=== PATIENT | female | born 1960 | race Asian ===

== ENCOUNTER 2020-01-07 10:14 | Emergency (ER) | payer SELFPAY ==
[~2020-01-07] VITALS: Ht 157.5 cm; Wt 49.4 kg
--- NOTE | 2020-01-07 10:23 | NUR ---
"Spotting on/off since 2018 worse this month last night more when I pee", to ER bed 16, hooked to monitor, changed to hosp gown, warm blanket provided, Dr Malave at bedside
--- NOTE | 2020-01-07 10:25 | NUR ---
URINE SPECIMEN COLLECTED AND SENT TO LAB.
--- NOTE | 2020-01-07 10:40 | NUR ---
IV LINE ESTABLISHED BLOOD DRAWN AND SENT TO LAB.
[2020-01-07 10:47] LABS: APPEARANCE,URINE Clear (CLEAR); BILIRUBIN,URINE Negative (NEGATIVE); BLOOD, URINE Moderate Ery/uL (NEGATIVE); COLOR,URINE Yellow (YELLOW); KETONES,URINE Negative (NEGATIVE); LEUKOCYTE ESTERASE ,URINE Negative (NEGATIVE); NITRITE, URINE Negative (NEGATIVE); PH,URINE 7.5 (5.0-8.0); PROTEIN,URINE Negative (NEGATIVE); UGLUCOSE Negative (NEGATIVE); UROBILINOGEN,URINE 0.2 EU/dL (0.2)
[2020-01-07 10:49] LABS: BASOPHILS % (AUTO) 0.8 % (0.0-2.0); EOSINOPHILS % (AUTO) 0.4 % (0.0-6.0); HEMATOCRIT 42 % (33-45); HEMOGLOBIN 13.6 g/dL (11.5-14.8); LYMPHOCYTES % (AUTO) 18.3 % (20.0-44.0); MEAN CORPUSCULAR HGB CONC 33 g/dl (31.0-36.0); MEAN CORPUSCULAR VOLUME 84 fL (82-100); MONOCYTES # (AUTO) 0.3 /CMM (0.1-1.30); MONOCYTES % (AUTO) 5.2 % (2.0-12.0); NEUTROPHILS # (AUTO) 4.1 /CMM (1.8-8.9); NEUTROPHILS % (AUTO) 75.3 % (43.0-81.0); PLATELET COUNT (AUTO) 301 /CMM (150-450); RED BLOOD CELL COUNT(AUTO) 4.96 MIL/uL (4.0-5.2); WHITE BLOOD COUNT (AUTO) 5.5 K/uL (4.3-11.0)
[2020-01-07 10:56] LABS: BACTERIA,URINE Few /HPF (None Seen); SQUAMOUS EPITHELIAL CELL,UR Few /HPF (None Seen); WBC,URINE 0-2 /HPF (0-3)
[2020-01-07] MEDS ORDERED: IV NS 0.9% 1,000 ML BAG IV ONE (11:00)
[2020-01-07 11:02] LABS: ALBUMIN 4.3 g/dL (3.4-5.0); BILIRUBIN,DIRECT 0.1 mg/dL (0.0-0.2); BILIRUBIN,TOTAL 0.3 mg/dL (0.2-1.0); CALCIUM, SERUM 9.1 mg/dL (8.5-10.1); CREATININE 0.8 mg/dL (0.6-1.3); TOTAL PROTEIN, SERUM 8.1 g/dL (6.4-8.2)
--- NOTE | 2020-01-07 11:20 | NUR ---
TECH AT BEDSIDE FOR US.
--- NOTE | 2020-01-07 12:05 | NUR ---
IV removed. Catheter intact and site benign. Pressure and 4x4 applied to site. No bleeding noted.Patient discharged to home in stable condition. Written and verbal after care instructions given. Patient verbalizes understanding of instruction.
[2020-01-07 12:07] VITALS: BP 174/100
== END 2020-01-07 12:07 | disposition home or self-care (01) ==
LOC: ER 10:18
DX: D25.9 Leiomyoma of uterus, unspecified (principal)
CPT/HCPCS: 36415; 76856; 80048; 80076; 81001; 85025; 87086; 99284; J7030; 81000-TC

== ENCOUNTER 2020-03-24 12:01 | Inpatient (IN) | payer SELFPAY ==
[~2020-03-24] VITALS: Ht 157.5 cm; Wt 48.5 kg
[2020-03-24] VITALS (9 sets, daily range): BP systolic 108–141; BP diastolic 66–81
--- NOTE | 2020-03-24 12:10 | NUR ---
patient came in to the er c/o vaginal bleeding x 2 months. On room air, breathing evenly and unlabored. connected to the monitor and pulse ox. kept comfortable, will continue to monitor accordingly.
[2020-03-24] MEDS ORDERED: IV NS 0.9% 1,000 ML BAG IV ONE (12:30)
[2020-03-24 12:55] LABS: APPEARANCE,URINE SL CLOUDY (CLEAR); BILIRUBIN,URINE NEGATIVE (NEGATIVE); BLOOD, URINE LARGE Ery/uL (NEGATIVE); COLOR,URINE AMBER (YELLOW); KETONES,URINE NEGATIVE (NEGATIVE); LEUKOCYTE ESTERASE ,URINE TRACE (NEGATIVE); NITRITE, URINE NEGATIVE (NEGATIVE); PH,URINE 6.5 (5.0-8.0); PROTEIN,URINE 30 mg/dl (NEGATIVE); UGLUCOSE NEGATIVE (NEGATIVE); UROBILINOGEN,URINE 0.2 EU/dL (0.2)
[2020-03-24 12:58] LABS: BASOPHILS # (AUTO) 0.1 /CMM (0.0-0.2); BASOPHILS % (AUTO) 1.1 % (0.0-2.0); EOSINOPHILS % (AUTO) 1.4 % (0.0-6.0); LYMPHOCYTES # (AUTO) 1.7 /CMM (0.8-4.8); LYMPHOCYTES % (AUTO) 27.8 % (20.0-44.0); MEAN CORPUSCULAR HGB CONC 31 g/dl (31.0-36.0); MEAN CORPUSCULAR VOLUME 78 fL (82-100); MONOCYTES # (AUTO) 0.4 /CMM (0.1-1.30); MONOCYTES % (AUTO) 7.1 % (2.0-12.0); NEUTROPHILS # (AUTO) 3.8 /CMM (1.8-8.9); NEUTROPHILS % (AUTO) 62.6 % (43.0-81.0); PLATELET COUNT (AUTO) 465 /CMM (150-450); RED BLOOD CELL COUNT(AUTO) 2.23 MIL/uL (4.0-5.2); WHITE BLOOD COUNT (AUTO) 6.1 K/uL (4.3-11.0)
[2020-03-24 13:05] LABS: BACTERIA,URINE Few /HPF (None Seen); RBC,URINE TOO NUMEROUS TO COUN /HPF (0-2); SQUAMOUS EPITHELIAL CELL,UR Few /HPF (None Seen); WBC,URINE 0-2 /HPF (0-3)
[2020-03-24 13:09] LABS: CALCIUM, SERUM 8.6 mg/dL (8.5-10.1); CREATININE 0.7 mg/dL (0.6-1.3); POTASSIUM 3.3 mmol/L (3.5-5.1)
[2020-03-24 13:14] LABS: HEMATOCRIT 18 % (33-45); HEMOGLOBIN 5.4 g/dL (11.5-14.8)
[2020-03-24 13:15] LABS: BAND % (MANUAL) 15 % (0.0-5.0); EOSINOPHILS % (MANUAL) 2 % (0-4); LYMPHOCYTES % (MANUAL) 25 % (16-48); MONOCYTES % (MANUAL) 9 % (0-11.0); NEUTROPHILS % (MANUAL) 49 (42-76)
[2020-03-24 13:24] LABS: ALBUMIN 3.6 g/dL (3.4-5.0); BILIRUBIN,DIRECT 0.1 mg/dL (0.0-0.2); BILIRUBIN,TOTAL 0.2 mg/dL (0.2-1.0); TOTAL PROTEIN, SERUM 7.1 g/dL (6.4-8.2)
--- NOTE | 2020-03-24 14:37 | NUR ---
gallo virus swab done and sent to lab
[2020-03-24] MEDS ORDERED: HYDROCODONE/APAP 10/325MG 1 EA TABLET PO PRN (15:00)
[2020-03-24] MEDS ORDERED: ONDANSETRON HCL/PF 4 MG/2 ML VIAL IVP PRN (15:00)
[2020-03-24] MEDS ORDERED: MAG HYDROX/AL HYDROX/SIMETH 30 ML UDC PO PRN (15:00)
[2020-03-24] MEDS ORDERED: TEMAZEPAM 15 MG CAPSULE PO PRN (15:00)
[2020-03-24] MEDS ORDERED: MAGNESIUM HYDROXIDE 30 ML UDC PO PRN (15:00)
[2020-03-24] MEDS ORDERED: HYDROCODONE/APAP 5/325MG 1 EACH TABLET PO PRN (15:00)
[2020-03-24] MEDS ORDERED: Z GUARD REMEDY 2 OZ OINT TP PRN (15:00)
[2020-03-24] MEDS ORDERED: ACETAMINOPHEN 325 MG TABLET PO PRN (15:00)
--- NOTE | 2020-03-24 15:50 | NUR ---
COVID RESULT NEG. (-) PER LAB
--- NOTE | 2020-03-24 16:26 | NUR ---
Report given to bianka PEREZ for continuity of care
--- NOTE | 2020-03-24 17:04 | NUR ---
RN ADMITTING NOTES Receive pt AAOx3 respirations even and unlabored at RA, IV LAC #18 line is clean and intact.skin assess and is intact. Pt stable able to ambulate continent of B&B no C/O of pain at this time will continue with admits orders. Safety precautions in place bed in low position call light at reach will needs attended continue to monitor.
[2020-03-24] MEDS: MEGESTROL ACETATE 40 MG TABLET PO SCH (18:00)
--- NOTE | 2020-03-24 19:30 | NUR ---
RN PM OPENING NOTE MS REPORT RECIEVED FROM KEYLA PEREZ. PT IN BED IN NO APPARENT DISTRESS. RES EVEN AND UNLABORED. DENIES DIZZINESS UPON AMBULATION. AX0X4. REVIEWED POC QUESTIONS CONCERNS ADDRESSED. PATIENT HGB WAS 5.4 2 UNITS OF PRBC WERE ORDERED FOR TRANSFUSION PER REPORT BLOOD IS READY. IV LEFT AC #18 CDI NO S/S OF INFILTRATION. BED DOWN CALL LIGHT IN REACH WILL CONT TO MONITOR.
[2020-03-25] VITALS (10 sets, daily range): BP systolic 105–182; BP diastolic 57–113
--- NOTE | 2020-03-25 06:40 | NUR ---
RN PM CLOSING NOTES. PT IN BED ALERT ORIENTED DENIES PAIN. DENIES DIZZINESS. AMBULATING TO BR WITH STEADY GAIT. REPORTS WHENT TO BR 5X LAST NOC NO BM. RECIEVED 2 UNITS OF RBC LAST NIGHT TOLEARTED INFUSION WELL. BED DOWN LOCKED SR X2 VERBALIZED UNDERSTANDTING TO CALL FOR ASSISTANCE IF NEEDED.
[2020-03-25 07:28] LABS: BASOPHILS % (AUTO) 0.8 % (0.0-2.0); HEMATOCRIT 26 % (33-45); HEMOGLOBIN 8.2 g/dL (11.5-14.8); LYMPHOCYTES # (AUTO) 1.7 /CMM (0.8-4.8); LYMPHOCYTES % (AUTO) 32.7 % (20.0-44.0); MEAN CORPUSCULAR HGB CONC 32 g/dl (31.0-36.0); MEAN CORPUSCULAR VOLUME 83 fL (82-100); MONOCYTES # (AUTO) 0.3 /CMM (0.1-1.30); MONOCYTES % (AUTO) 6.5 % (2.0-12.0); PLATELET COUNT (AUTO) 371 /CMM (150-450); RED BLOOD CELL COUNT(AUTO) 3.09 MIL/uL (4.0-5.2); WHITE BLOOD COUNT (AUTO) 5.1 K/uL (4.3-11.0)
--- NOTE | 2020-03-25 07:30 | NUR ---
RN Opening Note Received patient in bed, AO x 4, able to responds all stimuli. Denies pain or discomfort, skin is warm to touch, clean/dry. Respiratory even and unlabored in room air, no distress observed. Keep bed in locked with elevated HOB for ensure airway and aspiration precaution. Call light within reach, will continue to monitor.
[2020-03-25 07:31] LABS: CALCIUM, SERUM 8.3 mg/dL (8.5-10.1); CREATININE 0.7 mg/dL (0.6-1.3); MAGNESIUM 2.3 mg/dL (1.8-2.4); PHOSPHORUS 3.3 mg/dL (2.5-4.9); POTASSIUM 3.2 mmol/L (3.5-5.1)
[2020-03-25 07:35] LABS: THYROID STIMULATING HORMONE 2.795 uIU/mL (0.358-3.74)
[2020-03-25] MEDS: MEGESTROL ACETATE 40 MG TABLET PO SCH (08:28)
[2020-03-25] MEDS ORDERED: POTASSIUM CHLORIDE 20 MEQ TAB.PRT.SR PO ONE (08:30)
[2020-03-25 15:26] LABS: BASOPHILS % (AUTO) 0.6 % (0.0-2.0); EOSINOPHILS % (AUTO) 1.5 % (0.0-6.0); HEMATOCRIT 27 % (33-45); HEMOGLOBIN 8.6 g/dL (11.5-14.8); LYMPHOCYTES # (AUTO) 1.7 /CMM (0.8-4.8); LYMPHOCYTES % (AUTO) 25.1 % (20.0-44.0); MEAN CORPUSCULAR HGB CONC 32 g/dl (31.0-36.0); MEAN CORPUSCULAR VOLUME 84 fL (82-100); MONOCYTES # (AUTO) 0.4 /CMM (0.1-1.30); NEUTROPHILS # (AUTO) 4.5 /CMM (1.8-8.9); NEUTROPHILS % (AUTO) 66.8 % (43.0-81.0); PLATELET COUNT (AUTO) 377 /CMM (150-450); RED BLOOD CELL COUNT(AUTO) 3.22 MIL/uL (4.0-5.2); WHITE BLOOD COUNT (AUTO) 6.7 K/uL (4.3-11.0)
--- NOTE | 2020-03-25 16:18 | NUR ---
pt wants to know when COLD WORKING SUPERVISOR is coming. left msg for to find out the time. awaiting for call back.
--- NOTE | 2020-03-25 16:28 | NUR ---
Dr. Parker called back, stating that she will see pt in am.
--- NOTE | 2020-03-25 18:55 | NUR ---
RN Closing Patient in bed comfortably, finished dinner, denies pain or distress. Reparatory even and unlabored in room air, skin is warm to touch, kept clean, dry. Keep bed in locked with elevated HOB for ensure airway and aspiration precaution. Call light within reach, will endorse scene shifter.
--- NOTE | 2020-03-25 19:00 | NUR ---
RN medsurg opening notes Received Pt from morning nurse. Pt is awake and sitting in bed comfortably. Pt is alert and orientedX4. Respiration is normal. No SOB. No S/s of distress noted. IV sites at LAC# 18 is clean, intact and flush without resistance. Pt is able to ambulate with a steady gait. Safety precautions is maintained. Bed at low position, brakes locked, side rails upX2, HOB elevated and call light is within reach. Will continue to monitor.
--- NOTE | 2020-03-25 22:00 | NUR ---
[facility] medsurg closing notes Transferred continuity of care to [facility] Pain[facility].
--- NOTE | 2020-03-25 22:00 | NUR ---
MS RN NOTES RECEIVED REPORT FROM ANA CORDOVA FOR ZEINA. PATIENT IS SLEEPING IN BED. ON RA, NO SOB/ ACUTE RESPIRATORY DISTRESS NOTED. NO COMPLAINTS OF PAIN AT THE MOMENT. BED IS IN LOWEST LOCKED POSITION WITH SIDE RAILS UP X3, SEMI FOWLERS. CALL LIGHT IS WITHIN REACH. WILL CONTINUE TO MONITOR.
--- NOTE | 2020-03-26 06:24 | NUR ---
MS RN CLOSE NOTES PATIENT IS LAYING IN BED. A/O X4. ON RA, NO SOB/ ACUTE RESPIRATORY DISTRESS NOTED. IV IN L AC #18G IS PATENT AND INTACT. APPEARS COMFORTABLE/ NO COMPLAINTS OF PAIN AT THE MOMENT. PATIENT IS AMBULATORY. BED IS IN LOWEST LOCKED POSITION WITH SIDE RAILS UP X2, SEMI FOWLERS. CALL LIGHT IS WITHIN REACH. WILL ENDORSE TO AM NURSE.
--- NOTE | 2020-03-26 07:31 | NUR ---
MS/RN OPENING NOTES RECEIVED PATIENT ON BED AWAKE ALERT AND ORIENTED X4. PATENT DENIES PAIN AT THIS TIME. NO SOB NOTED. WILL CONTINUE TO MONITOR.
[2020-03-26 08:00] VITALS: BP 126/77
[2020-03-26] MEDS: MEGESTROL ACETATE 40 MG TABLET PO SCH (08:27)
[2020-03-26] MEDS ORDERED: MEGE40TA5 PO (12:57)
[2020-03-26] MEDS ORDERED: MULT-754 PO (12:57)
--- NOTE | 2020-03-26 14:45 | NUR ---
MS/RN NOTES PATIENT IS ALERT AND ORIENTED X 4. PATIENT DENIES PAIN AT THIS TIME. IN ROOM AIR AND SATURATION IS AT 100%. RESPIRATION REGULAR AND UNLABORED. THE PATIENT IN NO APPARENT RESPIRATORY DISTRESS NOTED. SEEN AND EXAMINED BY MD WITH ORDERS MADE AND CARRIED OUT. ALL DUE MEDICATION WAS ORDER. PATIENT DISCHARGED AT 1440. PATIENT WAS GIVEN DISCHARGED INSTRUCTIONS AND PATIENT VERBALIZED UNDERSTANDING. THE PATIENT LEFT THE HOSPITAL IN STABLE CONDITION, AMBULATORY AND DATABASE REPORTING CONSULTANT BY FRIEND ON A PRIVATE CAR.
== END 2020-03-26 14:40 | disposition home or self-care (01) | DRG 761 ==
LOC: ER 12:06 → MED 16:25
PROVIDERS: ADMIT Nurse Practitioner Acute Care; ATTEND Nurse Practitioner Acute Care
DX: D25.9 Leiomyoma of uterus, unspecified (principal); N80.0 Endometriosis of uterus; D64.9 Anemia, unspecified; E87.6 Hypokalemia; D47.3 Essential (hemorrhagic) thrombocythemia; N95.0 Postmenopausal bleeding; Z87.891 Personal history of nicotine dependence
CPT/HCPCS: 36415; 76856-TC; 80048-TC; 80076-TC; 81000-TC; 83735-TC; 84100-TC; 84443-TC; 85025-TC; 85730-TC; 86850-TC; 86921-TC; 87081-TC; G0378; J7030; J7050; P9016-BL

== ENCOUNTER 2021-01-09 13:08 | Inpatient (IN) | payer OTHER ==
[~2021-01-09] VITALS: Ht 157.5 cm; Wt 54.0 kg
[2021-01-09] VITALS (8 sets, daily range): BP systolic 119–140; BP diastolic 58–76
[~2021-01-09 13:08] MED LIST: MEGE40TA5 PO; MULT-754 PO
--- NOTE | 2021-01-09 14:00 | NUR ---
VAGINAL BLEEDING DUE TO FIBROIDS BECAME HEAVY SINCE LAST NIGHT, DR PHILLIPS DECREASED HER HORMONE DOSAGES 9 DAYS AGO. PATIENT A/OX4, BREATHING EVEN AND UNLABORED, NO SOB NOTED, NEEDS ATTENDED.
[2021-01-09 14:52] LABS: BASOPHILS # (AUTO) 0.1 /CMM (0.0-0.2); BASOPHILS % (AUTO) 1.3 % (0.0-2.0); EOSINOPHILS % (AUTO) 1.4 % (0.0-6.0); LYMPHOCYTES # (AUTO) 1.4 /CMM (0.8-4.8); LYMPHOCYTES % (AUTO) 16.1 % (20.0-44.0); MEAN CORPUSCULAR HGB CONC 28 g/dl (31.0-36.0); MEAN CORPUSCULAR VOLUME 60 fL (82-100); MONOCYTES # (AUTO) 0.7 /CMM (0.1-1.30); MONOCYTES % (AUTO) 7.3 % (2.0-12.0); NEUTROPHILS # (AUTO) 6.7 /CMM (1.8-8.9); NEUTROPHILS % (AUTO) 73.9 % (43.0-81.0); PLATELET COUNT (AUTO) 433 /CMM (150-450); RED BLOOD CELL COUNT(AUTO) 2.24 MIL/uL (4.0-5.2)
[2021-01-09 14:57] LABS: HEMATOCRIT 13 % (33-45); HEMOGLOBIN 3.7 g/dL (11.5-14.8)
[2021-01-09] MEDS ORDERED: IV NS 0.9% 1,000 ML BAG IV ONE (15:00)
[2021-01-09 15:01] LABS: CALCIUM, SERUM 8.9 mg/dL (8.5-10.1); CREATININE 0.7 mg/dL (0.6-1.3); POTASSIUM 3.3 mmol/L (3.5-5.1)
[2021-01-09] MEDS ORDERED: DROS4TAB PO (15:23)
[2021-01-09 15:30] LABS: BAND % (MANUAL) 2 % (0.0-5.0); EOSINOPHILS % (MANUAL) 2 % (0-4); LYMPHOCYTES % (MANUAL) 9 % (16-48); MONOCYTES % (MANUAL) 5 % (0-11.0); NEUTROPHILS % (MANUAL) 82 (42-76)
--- NOTE | 2021-01-09 15:46 | NUR ---
BED 103
--- NOTE | 2021-01-09 15:51 | NUR ---
PATIENT A/OX4, BREATHING EVEN AND UNLABORED, NO SOB NOTED. VITALS STABLE. NEEDS ATTENDED. KEPT COMFORTABLE.
--- NOTE | 2021-01-09 16:29 | NUR ---
1 UNIT OF PRBC INITIATED. WILL MONITOR FOR ADVERSE REACTION.
--- NOTE | 2021-01-09 17:02 | NUR ---
report given to Tresa vasquez.
[2021-01-09] MEDS ORDERED: ACETAMINOPHEN 325 MG TABLET PO PRN (17:30)
[2021-01-09] MEDS ORDERED: MAGNESIUM HYDROXIDE 30 ML UDC PO PRN (17:30)
[2021-01-09] MEDS ORDERED: ZOLPIDEM TARTRATE 5 MG TABLET PO PRN (17:30)
[2021-01-09] MEDS ORDERED: ONDANSETRON HCL/PF 4 MG/2 ML VIAL IVP PRN (17:30)
[2021-01-09] MEDS ORDERED: MAG HYDROX/AL HYDROX/SIMETH 30 ML UDC PO PRN (17:30)
[2021-01-09] MEDS ORDERED: HYDROCODONE/APAP 5/325MG TABLET PO PRN (17:30)
--- NOTE | 2021-01-09 17:58 | NUR ---
PATIENT A/OX4, TRANSFERRED TO ROOM 103 VIA ACLS PROTOCOL. IN NO DISTRESS NOTED. PRBC 1 UNIT STILL INFUSING AND PATIENT IS TOLERATING WELL. ENDORSED TO TASHA PEREZ.
--- NOTE | 2021-01-09 18:00 | NUR ---
RN ADMITTING NOTES RECEIVED, PATIENT FROM ER, AMBULATORY, ON ROOM AIR, SPO2 99%, DENIES PAIN, NO SOB OR DISTRESS NOTED, IB LINE ON L AC NOTED, INTACT, PATENT, RUNNING 1 UNIT OF PRBC, TOLERATING WELL, VS WNL, PATIENT ORIENTED TO ROOM,EDUCATION PROVIDED, CALL LIGHT IN REACH, BED LOCKED, LOWEST POSITION, WILL CONT TO MONITOR
--- NOTE | 2021-01-09 18:45 | NUR ---
CALLED BLOOD BANK TO CONFIRMED BOUT 2ND UNIT PRBC, PER KEVIN IT WILL BE READY
--- NOTE | 2021-01-09 19:03 | NUR ---
RN CLOSING NOTES BLOOD TRANSFUSING, TOLERATING WELL, STABLE, WILL ENDORSE TO PM SHIFT RN FOR ZEINA
--- NOTE | 2021-01-09 19:30 | NUR ---
RN NOTE RECEIVED PT ALERT AND ORIENTED X 4. DENIES ANY SOB OR CHEST PAIN. ON TELE MONITOR SHOWS SINUS RHYTHM. 1ST BAG OF PRBC JUST FINISHED. NO S/SX OF REACTIONS NOTED. IV ON LAC PATENT AND INTACT. WILL CONTINUE TO MONITOR. ALL SAFETY MEASURES IMPLEMENTED PER PROTOCOL.
--- NOTE | 2021-01-09 20:05 | NUR ---
RN NOTE 2ND UNIT OF PRBC STARTED TRANSFUSING. VITAL SIGNS IN NORMAL RANGE, AFEBRILE. WILL CONTINUE TO MONITOR.
--- NOTE | 2021-01-09 20:35 | NUR ---
RN NOTE TRANSFUSION ON GOING, PT TEMP 99.4. NO SIGNS OF OTHER REACTIONS NOTED. PT DENIES SOB. PT DOES NOT WANT TO TAKE TYLENOL FOR NOW, WILL RECHECK IN 3O MINS. DIESEL ENGINEER GLEN HOUSER MADE AWARE.
--- NOTE | 2021-01-09 22:07 | NUR ---
RN NOTE BLOOD TRANSFUSION STILL ONGOING, PT TOLERATING WELL. NO SIGNS OF DISTRESS OR REACTIONS NOTED. PT TEMP 98.8.
--- NOTE | 2021-01-09 23:46 | NUR ---
RN NOTE BLOOD TRANSFUSION DONE. NO S/SX OF REACTIONS NOTED. NO DISTRESS NOTED. DENIES SOB. WILL CONTINUE TO MONITOR.
[2021-01-10] VITALS: BP 140/76
[2021-01-10 02:21] LABS: HEMOGLOBIN 7.2 g/dL (11.5-14.8)
[2021-01-10 04:00] VITALS: BP 144/73
[2021-01-10 06:00] LABS: CALCIUM, SERUM 8.4 mg/dL (8.5-10.1); CREATININE 0.7 mg/dL (0.6-1.3); PHOSPHORUS 2.2 mg/dL (2.5-4.9); POTASSIUM 3.3 mmol/L (3.5-5.1)
[2021-01-10 06:11] LABS: BASOPHILS # (AUTO) 0.1 /CMM (0.0-0.2); BASOPHILS % (AUTO) 1.1 % (0.0-2.0); EOSINOPHILS % (AUTO) 1.6 % (0.0-6.0); HEMATOCRIT 23 % (33-45); HEMOGLOBIN 7.4 g/dL (11.5-14.8); LYMPHOCYTES # (AUTO) 1.3 /CMM (0.8-4.8); LYMPHOCYTES % (AUTO) 15.6 % (20.0-44.0); MEAN CORPUSCULAR HGB CONC 32 g/dl (31.0-36.0); MEAN CORPUSCULAR VOLUME 73 fL (82-100); MONOCYTES # (AUTO) 0.5 /CMM (0.1-1.30); MONOCYTES % (AUTO) 6.3 % (2.0-12.0); NEUTROPHILS # (AUTO) 6.1 /CMM (1.8-8.9); NEUTROPHILS % (AUTO) 75.4 % (43.0-81.0); PLATELET COUNT (AUTO) 360 /CMM (150-450)
[2021-01-10 06:53] LABS: THYROID STIMULATING HORMONE 3.043 uIU/mL (0.358-3.74)
--- NOTE | 2021-01-10 07:00 | NUR ---
RN CLOSING NOTES PT AWAKE, ABLE TO MAKE NEEDS KNOWN. LATEST HGB 7.4. PT WITH ACTIVE VAGINAL BLEEDING. DENIES SOB OR DIZZINESS. PT AMBULATES TO RESTROOM. ALL NEEDS ATTENDED. IV REMAIN PATENT AND INTACT. WILL ENDORSE TO NEXT SHIFT NURSE FOR ZEINA.
[2021-01-10] MEDS ORDERED: PANTOPRAZOLE 40 MG TABLET.DR PO SCH (07:30)
--- NOTE | 2021-01-10 07:30 | NUR ---
RN OPENING NOTE PATIENT PRESENT IN BED, A/OX4, ON ROOM AIR, SPO2 100%, NO ACUTE DISTRESS, NO SOB NOTED, DENIES PAIN, DISCOMFORT, STATES THAT SHE WAS ACTIVELY BLEEDING DURING THE NIGHT (USED 5 PADS) , IV LINE PATENT AND INTACT, BED LOCKED, IN LOWEST POSITION, CALL LIGHT IN REACH, WILL CONT TO MONITOR
--- NOTE | 2021-01-10 09:55 | NUR ---
Picked up blood from blood bank
[2021-01-10] MEDS ORDERED: POTASSIUM CHLORIDE 20 MEQ TAB.PRT.SR PO ONE (10:00)
[2021-01-10 10:07] VITALS: BP 114/61
--- NOTE | 2021-01-10 10:07 | NUR ---
blood transfusion imitated
[2021-01-10 10:22] VITALS: BP 112/61
[2021-01-10] MEDS ORDERED: K PHOS NEUTRAL 250 MG TABLET PO ONE (10:30)
--- NOTE | 2021-01-10 10:30 | NUR ---
Tolerating transfusion well, no s/sx of adverse reaction noted, BS WNL, will cont to monitor
[2021-01-10 10:52] VITALS: BP 123/68
--- NOTE | 2021-01-10 13:00 | NUR ---
TOLERATED BLOOD TRANSFUSION WELL, VS WNL, EDUCATION PROVIDED, VERBALIZED UNDERSTANDING TO CALL AND FOLLOW UP WITH OBGYN DOCTOR, (DR PHILLIPS), IV LINE REMOVED, WILL BE PICKED UP BY ROOMMATE CAR
== END 2021-01-10 14:17 | disposition home or self-care (01) | DRG 532 ==
LOC: ER 13:12 → TELE1 16:54
PROC: 30233N1 Transfusion of Nonautologous Red Blood Cells into Peripheral Vein, Percutaneous Approach (ICD-10-PCS; principal; 2021-01-09)
DX: D25.9 Leiomyoma of uterus, unspecified (principal); D62 Acute posthemorrhagic anemia; E87.1 Hypo-osmolality and hyponatremia; Z20.822 Contact with and (suspected) exposure to COVID-19; E87.6 Hypokalemia; Z87.891 Personal history of nicotine dependence; Z79.899 Other long term (current) drug therapy
CPT/HCPCS: 36415; 80048-TC; 80061-TC; 83735-TC; 84100-TC; 84443-TC; 85025-TC; 85027-TC; 85730-TC; 86850-TC; 87081-TC; C9803; G0378; J7030; J7050; P9016

== ENCOUNTER 2021-06-21 10:35 | Inpatient (IN) | payer OTHER ==
[~2021-06-21] VITALS: Ht 157.5 cm; Wt 54.4 kg
--- NOTE | 2021-06-21 10:47 | NUR ---
PT SELF PRESENTS TO ED C/O FEVER SINCE WEDNESDAY. STATES TAKING TYLENOL BUT NOT GOING AWAY. PT ALSO C/O MILD ABDOMINAL/PELVIC PAIN. HYPERTENSIVE W/ LOW GRADE FEVER DEICER REPAIRER. PLACED ON MONITOR. AWAITING MD NORIEGA.
--- NOTE | 2021-06-21 11:00 | NUR ---
MOVE SHEET SUBMITTED.
--- NOTE | 2021-06-21 11:04 | NUR ---
DR ASHTON AT BEDSIDE FOR EVAL.
--- NOTE | 2021-06-21 11:15 | NUR ---
PIT BOSS AT BEDSIDE
[2021-06-21] MEDS ORDERED: PIPERACILLIN /TAZOBACTAM 3.375 G in IV D5W 50 ML IV ONE (11:30)
[2021-06-21 11:31] LABS: BASOPHILS # (AUTO) 0.1 K/uL (0.0-0.2); BASOPHILS % (AUTO) 0.3 % (0.0-2.0); EOSINOPHILS % (AUTO) 0.1 % (0.0-6.0); HEMATOCRIT 25 % (33-45); HEMOGLOBIN 7.6 g/dL (11.5-14.8); LYMPHOCYTES # (AUTO) 0.5 K/uL (0.8-4.8); LYMPHOCYTES % (AUTO) 2.9 % (20.0-44.0); MEAN CORPUSCULAR HGB CONC 31 g/dl (31.0-36.0); MEAN CORPUSCULAR VOLUME 76 fL (82-100); MONOCYTES # (AUTO) 0.6 K/uL (0.1-1.30); MONOCYTES % (AUTO) 3.4 % (2.0-12.0); NEUTROPHILS # (AUTO) 17.3 K/uL (1.8-8.9); NEUTROPHILS % (AUTO) 93.3 % (43.0-81.0); PLATELET COUNT (AUTO) 575 K/uL (150-450); RED BLOOD CELL COUNT(AUTO) 3.29 MIL/uL (4.0-5.2); WHITE BLOOD COUNT (AUTO) 18.5 K/uL (4.3-11.0)
[2021-06-21 11:36] LABS: BILIRUBIN,URINE Negative (NEGATIVE); COLOR,URINE YELLOW (YELLOW); LEUKOCYTE ESTERASE ,URINE Moderate (NEGATIVE); NITRITE, URINE Negative (NEGATIVE); PROTEIN,URINE 30 mg/dl (NEGATIVE); UGLUCOSE Negative (NEGATIVE)
[2021-06-21 11:38] LABS: BACTERIA,URINE 2+ /HPF (None Seen); SQUAMOUS EPITHELIAL CELL,UR Few /HPF (None Seen)
[2021-06-21 11:38] LABS: CREATININE 1.3 mg/dL (0.6-1.3); POTASSIUM 3.2 mmol/L (3.5-5.1)
[2021-06-21 11:44] LABS: ALBUMIN 3.2 g/dL (3.4-5.0); BILIRUBIN,DIRECT 0.2 mg/dL (0.0-0.2); BILIRUBIN,TOTAL 0.6 mg/dL (0.2-1.0); TOTAL PROTEIN, SERUM 7.9 g/dL (6.4-8.2)
[2021-06-21] MEDS ORDERED: IV NS 0.9% 2,000 ML IV ONE (12:00)
[2021-06-21] MEDS ORDERED: VANCOMYCIN HCL 1.25 GM in IV D5W 260 ML IV ONE (12:00)
[2021-06-21] MEDS ORDERED: ACETAMINOPHEN 325 MG TABLET PO ONE (12:00)
[2021-06-21] MEDS ORDERED: IOHEXOL-300 100 ML VIAL IV ONE (12:07)
[2021-06-21] MEDS ORDERED: ACETAMINOPHEN 325 MG TABLET ONE (12:11)
--- NOTE | 2021-06-21 12:12 | NUR ---
COVID SWAB DONE AND SENT TO LAB
--- NOTE | 2021-06-21 13:17 | NUR ---
ROOM 326-2
--- NOTE | 2021-06-21 13:19 | NUR ---
[facility] CALLED PRINT MANAGER PAGED.
--- NOTE | 2021-06-21 13:20 | NUR ---
report given to Carmen PEREZ for chris.
--- NOTE | 2021-06-21 14:45 | NUR ---
ELECTRO MECHANICAL ASSEMBLERADULT SCHOOL TEACHER NOTE PT TRANSPORTED VIA GURNEY TO UNIT AT THIS TIME. PT ADMITTED TO TELE UNIT FROM ER UNDER CHIEF TECHNOLOGIST STANLEY FOR ADMITTING DX OF SEPSIS AND SECONDARY DX OF NSTEMI TYPE 2. A/O X4. PT ON ROOM AIR WITH NO SOB OR S/S OF RESPIRATORY DISTRESS NOTED. PT ON EXTERNAL DISASTER RESPONSE DIRECTOR READING ST AT 88 BPM. PT HAS NO C/O PAIN OR DISCOMFORT AT THIS TIME. SKIN IS INTACT. IV ACCESS IN LAC #20, INTACT AND PATENT. PT ORIENTED TO STAFF, ROOM, AND UNIT. SAFETY PRECAUTIONS MAINTAINED. BED IN LOWEST LOCKED POSITION, HOB ELEVATED, SIDE RAILS UP X2. CALL LIGHT AND TABLE WITHIN REACH. WILL CONTINUE TO MONITOR.
[2021-06-21 16:00] VITALS: BP 142/63
[2021-06-21] MEDS ORDERED: ONDANSETRON HCL/PF 4 MG/2 ML VIAL IVP PRN (17:00)
[2021-06-21] MEDS ORDERED: ZOLPIDEM TARTRATE 5 MG TABLET PO PRN (17:00)
[2021-06-21] MEDS ORDERED: MAG HYDROX/AL HYDROX/SIMETH 30 ML UDC PO PRN (17:00)
[2021-06-21] MEDS ORDERED: MAGNESIUM HYDROXIDE 30 ML UDC PO PRN (17:00)
[2021-06-21] MEDS ORDERED: Z GUARD REMEDY 2 OZ OINT TP PRN (17:00)
[2021-06-21] MEDS: ENOXAPARIN SODIUM 40 MG/0.4 ML DISP.SYRIN SQ SCH (17:28)
[2021-06-21] MEDS ORDERED: PIPERACILLIN /TAZOBACTAM 3.375 G in IV D5W 50 ML IV SCH (18:00)
[2021-06-21] MEDS: ZOSYN IVPB 2.25 G in IV D5W 50ml IV SCH ×2 (18:06→23:25)
[2021-06-21] MEDS: Potassium Chloride 40 MEQ in IV NS 0.9% 1,000 ML IV PRN (18:50)
--- NOTE | 2021-06-21 18:52 | NUR ---
TECHNOLOGY INTEGRATION SPECIALIST CLOSING NOTE PT IS AWAKE IN BED. A/O X4. PT ON ROOM AIR WITH NO SOB OR S/S OF RESPIRATORY DISTRESS NOTED. PT ON EXTERNAL WORKERS COMPENSATION MANAGER READING ST AT 95 BPM. PT HAS NO C/O PAIN OR DISCOMFORT AT THIS TIME. IV ACCESS IN LAC #20, INTACT AND PATENT. ALL NEEDS HAVE BEEN MET. SAFETY PRECAUTIONS MAINTAINED AT ALL TIMES. BED IN LOWEST LOCKED POSITION, HOB ELEVATED, SIDE RAILS UP X2. CALL LIGHT AND TABLE WITHIN REACH. WILL ENDORSE TO ONCOMING NURSE FOR ZEINA.
--- NOTE | 2021-06-21 19:45 | NUR ---
WAREHOUSE INCENTIVE SELECTOR NOTES ST 102 ON TELE MONITOR,BREATHING NORMAL,IVF NS WITH 40 MEQ KCL AT 100ML/HR RATE IN PROGRESS ON LAC SALINE LOC VIA IV PUMP.A/O X4,ABLE TO VERBALIZE NEEDS.CALL LIGHT IN REACH,NEEDS ANTICIPATED.
[2021-06-21 20:00] VITALS: BP 124/48
[2021-06-21] MEDS: ACETAMINOPHEN 325 MG TABLET PO PRN (20:33)
--- NOTE | 2021-06-21 20:33 | NUR ---
PROP ATTENDANT NOTES VERBALIZED SHE'S SO HUNGRY,GIVEN SOFT TUNA SANDWICH,ORAL TEMP OF 101.7,TYLENOL 560MG PO GIVEN ORDERED,WITH BLOOD CULTURE X2,PENDING RESULT.ALREADY ON IV ABX.
[2021-06-21] MEDS: MORPHINE SULFATE INJ 2 MG/ML DISP.SYRIN IV PRN (22:51)
[2021-06-22] VITALS (14 sets, daily range): BP systolic 98–144; BP diastolic 49–83
[2021-06-22] MEDS: ACETAMINOPHEN 325 MG TABLET PO PRN ×2 (04:46→12:58)
--- NOTE | 2021-06-22 04:46 | NUR ---
ENVIRONMENTAL CONTROL ADMINISTRATOR NOTES AWAKE WITH ORAL TEMPERATURE OF 102,TYLENOL 650MG PO GIVEN,STILL PENDING BLOOD CULTURE RESULTS.
[2021-06-22] MEDS: ZOSYN IVPB 2.25 G in IV D5W 50ml IV SCH ×3 (05:16→18:14)
--- NOTE | 2021-06-22 06:37 | NUR ---
DEPUTY PROBATION OFFICER NOTES LATEST ORAL TEMP 98.7,IVF INFUSING WELL.KEPT NPO GOING FOR CT PERCUTANEOUS NEPHROSTOMY PLACEMENT TODA.Y.IN NO ACUTE DISTRESS
--- NOTE | 2021-06-22 07:15 | NUR ---
DUMPER OPERATOR OPENING NOTE RECEIVED PATIENT ALERT AND ORIENTED X 4. PT ON ROOM AIR WITH NO SOB OR S/S OF RESPIRATORY DISTRESS NOTED. PT ON EXTERNAL INVESTMENT PROFESSIONAL READING ST AT 121 BPM. PT HAS NO C/O PAIN OR DISCOMFORT AT THIS TIME. IV ACCESS IN LAC #20, INTACT AND PATENT. ALL NEEDS HAVE BEEN MET. SAFETY PRECAUTIONS MAINTAINED AT ALL TIMES. BED IN LOWEST LOCKED POSITION, HOB ELEVATED, SIDE RAILS UP X2. CALL LIGHT AND TABLE WITHIN REACH. WILL CONTINUE TO MONITOR PATIENT.
[2021-06-22 07:42] LABS: ALBUMIN 2.5 g/dL (3.4-5.0); BILIRUBIN,TOTAL 0.5 mg/dL (0.2-1.0); CALCIUM, SERUM 8.3 mg/dL (8.5-10.1); CREATININE 1.4 mg/dL (0.6-1.3); PHOSPHORUS 2.6 mg/dL (2.5-4.9); POTASSIUM 3.8 mmol/L (3.5-5.1); TOTAL PROTEIN, SERUM 6.7 g/dL (6.4-8.2)
[2021-06-22 07:52] LABS: BASOPHILS % (AUTO) 0.2 % (0.0-2.0); HEMATOCRIT 21 % (33-45); LYMPHOCYTES # (AUTO) 0.3 K/uL (0.8-4.8); LYMPHOCYTES % (AUTO) 2.1 % (20.0-44.0); MEAN CORPUSCULAR HGB CONC 31 g/dl (31.0-36.0); MEAN CORPUSCULAR VOLUME 74 fL (82-100); MONOCYTES # (AUTO) 0.4 K/uL (0.1-1.30); MONOCYTES % (AUTO) 2.7 % (2.0-12.0); NEUTROPHILS # (AUTO) 14.8 K/uL (1.8-8.9); PLATELET COUNT (AUTO) 485 K/uL (150-450); RED BLOOD CELL COUNT(AUTO) 2.77 MIL/uL (4.0-5.2); WHITE BLOOD COUNT (AUTO) 15.6 K/uL (4.3-11.0)
[2021-06-22] MEDS: PANTOPRAZOLE 40 MG TABLET.DR PO SCH ×2 (08:04→09:23)
[2021-06-22 08:18] LABS: HEMOGLOBIN 6.4 g/dL (11.5-14.8)
--- NOTE | 2021-06-22 08:30 | NUR ---
TRIMMER MACHINE NOTE PER LAB, PATIENT WITH HG OF 6.4. RELAYED RESULT TO DR. ANGEL WITH ORDERS FOR BLOOD TRANSFUSION. ORDERS READ BACK AND VERIFIED. WILL CONTINUE TO MONITOR PATIENT.
[2021-06-22] MEDS ORDERED: ASPIRIN EC 81 MG TABLET.DR PO SCH (09:00)
[2021-06-22] MEDS ORDERED: FERR324T PO (09:04)
[2021-06-22] MEDS ORDERED: MEGE40TA5 PO (09:04)
[2021-06-22] MEDS ORDERED: LOSA1TAB42 PO (09:04)
[2021-06-22] MEDS ORDERED: ACET-868 PO (09:05)
[2021-06-22] MEDS: Potassium Chloride 40 MEQ in IV NS 0.9% 1,000 ML IV PRN (09:28)
[2021-06-22 09:45] LABS: THYROID STIMULATING HORMONE 1.858 uIU/mL (0.358-3.74)
[2021-06-22 12:35] LABS: BAND % (MANUAL) 2 % (0.0-5.0); LYMPHOCYTES % (MANUAL) 2 % (16-48); MONOCYTES % (MANUAL) 1 % (0-11.0); NEUTROPHILS % (MANUAL) 95 (42-76)
--- NOTE | 2021-06-22 13:00 | NUR ---
TOOL POLISHER NOTE BLOOD AVAILABLE BUT PATIENT WITH TEMPERATURE ON 101.9. TYLENOL GIVEN INDICATED.
--- NOTE | 2021-06-22 14:00 | NUR ---
SKIING TEACHER NOTE TEMPERATURE WAS NORMAL. VS ARE WNL, CLOOD PICKED UP AND STARTED. WILL CONTINUE TO MONITOR PATIENT.
--- NOTE | 2021-06-22 16:00 | NUR ---
MARKETING PROJECT LEAD NOTE COMPLETED BLOOD TRANSFUSION, TOLERATED WELL WITH NO ADVERSE REACTION NOTED. WILL CONTINUE TO MONITOR PATIENT.
--- NOTE | 2021-06-22 19:00 | NUR ---
COMMERCIAL PEST CONTROL REPRESENTATIVE CLOSING NOTE PATIENT ALERT AND ORIENTED X 4. PT ON ROOM AIR WITH NO SOB OR S/S OF RESPIRATORY DISTRESS NOTED. PT ON EXTERNAL CATTLE AND WHEAT FARMER READING SR 85 BPM. PT HAS NO C/O PAIN OR DISCOMFORT AT THIS TIME. IV ACCESS IN LAC #20, AND RIGHT WRIST G20, INTACT AND PATENT. COMPLETED 1 UNIT PRBC, WITH ONGOING IV ATB. STILL FOR BT OF 1 UNIT PRBC. ENDORSED TO NEXT SHIFT. ALL NEEDS HAVE BEEN MET. SAFETY PRECAUTIONS MAINTAINED AT ALL TIMES. BED IN LOWEST LOCKED POSITION, HOB ELEVATED, SIDE RAILS UP X2. CALL LIGHT AND TABLE WITHIN REACH. WILL ENDORSE PATIENT FOR CONTINUITY OF CARE.
--- NOTE | 2021-06-22 19:40 | NUR ---
GEOTHERMAL OPERATING ENGINEER NOTES RECEIVED PATIENT IN BED A/OX4. NO S/S OF APPARENT DISTRESS. DENIES PAIN. TELE MONITOR READING NSR. NS + 40 MEQ OF KCL RUNNING AT THIS TIME. SAFETY IN PLACE. WILL CONTINUE TO MONITOR PATIENT. PATIENT WILL BE RECEIVING 1 MORE BAG OF PRBC, WILL ADMIN.
--- NOTE | 2021-06-22 20:50 | NUR ---
PAYROLL REPRESENTATIVE NOTES BLOOD TRANSFUSION STARTED AT THIS TIME. INITIAL VS FOLLOWS: BP- 99/68, T- 98.9, P- 87, RR- 20. SATURATION 99%. WILL MONITOR FOR ANY REACTIONS.
[2021-06-22] MEDS: ENOXAPARIN SODIUM 40 MG/0.4 ML DISP.SYRIN SQ SCH (21:00)
--- NOTE | 2021-06-22 21:04 | NUR ---
RAG PRODUCTION WORKER NOTE 2100 DOSE OF LOVENOX HELD. PATIENT CURRENTLY GETTING BLOOD TRANSFUSION ALSO PATIENT SCHEDULED FOR PROCEDURE TOMORROW.
--- NOTE | 2021-06-22 21:05 | NUR ---
EELER NOTES 15 MINUTES WITHIN BLOOD TRANSFUSION. NO REACTION NOTED. VS WITHIN NORMAL LIMITS. WILL CONT. TO MONITOR.
--- NOTE | 2021-06-22 21:05 | NUR ---
VASCULAR ULTRASOUND TECHNICIAN NOTES 1 HOUR VS FOLLOWS: T-97.6, HR-97, RR- 20, BP- 105/64, AND SATURATION 100%. INCREASED RATE TO 130 CC/HR. WILL CONT. TO MONITOR.
[2021-06-23] VITALS (10 sets, daily range): BP systolic 103–159; BP diastolic 63–93
--- NOTE | 2021-06-23 | NUR ---
PET CARE WORKER NOTES TRANSFUSION ENDED AT THIS TIME. V/S FOLLOWS: BP- 103/63, HR- 81, T- 98.7, 98% SATURATION. DENIES ANY SOB NOR URTICARIA, LIGHT HEADEDNESS, NOR FLUSHING. WILL CONT. TO MONITOR.
[2021-06-23] MEDS: ZOSYN IVPB 2.25 G in IV D5W 50ml IV SCH ×5 (00:28→23:35)
--- NOTE | 2021-06-23 02:15 | NUR ---
telephone service adviser note 3rd transfusion set started at this time. vs as follows: BP- 119/70, HR-95, T-98.3, RR-20, SATURATION 98%
--- NOTE | 2021-06-23 02:36 | NUR ---
PAINT ROLLER COVERS SUPERVISOR NOTES 15 MINUTES INTO THE TRANSFUSION. V/S STABLE WNL. NO REACTION. WILL CONTINUE TO MONITOR.
--- NOTE | 2021-06-23 03:43 | NUR ---
NEEDLE LOOM TENDER NOTES 1 HOUR THROUGH BLOOD TRANSFUSION. PATIENT STABLE NO REACTIONS. V/S FOLLOWS: BP- 137/77, P- 93, 100%, T- 99.5, RR- 20. DID START PATIENT IN COOLING MEASURES BECAUSE I DO NOT WANT THE TEMPERATURE TO GO ANY HIGHER. WILL CONT. TO MONITOR.
--- NOTE | 2021-06-23 04:25 | NUR ---
WIRE ROPE SLING MAKER NOTE TRANSFUSION ENDED AT THIS TIME. PATIENT IN STABLE CONDITION. NO REACTION. V/S FOLLOWS: BP- 141/78, T-99.2, HR-94, RR- 20, SATURATION 99%. WILL CONTINUE TO MONITOR.
--- NOTE | 2021-06-23 06:44 | NUR ---
ASSISTANT PROFESSOR OF COMMUNICATION NOTE PATIENT IN BED, A/OX4. AMBULATORY AND INDEPENDENT WITH SELF-CARE. NO S/S OF APPARENT DISTRESS. PAIN TOLERABLE PER PATIENT. TELE MONITOR READING NSR. PATIENT RECEIVED 2 BAGS OF PRBC TONIGHTTOLERATED, NO REACTION. IV KCL 40 MEQ WITH NS RUNNING AT 100 ML/HR. ALL NEEDS ATTENDED. ALL SCHEDULED MEDS ADMINISTERED. WILL ENDORSE CARE TO MORNING SHIFT RN.
[2021-06-23 07:48] LABS: BASOPHILS % (AUTO) 0.1 % (0.0-2.0); EOSINOPHILS % (AUTO) 1.2 % (0.0-6.0); HEMATOCRIT 34 % (33-45); HEMOGLOBIN 11.1 g/dL (11.5-14.8); LYMPHOCYTES # (AUTO) 0.5 K/uL (0.8-4.8); LYMPHOCYTES % (AUTO) 3.1 % (20.0-44.0); MEAN CORPUSCULAR HGB CONC 32 g/dl (31.0-36.0); MEAN CORPUSCULAR VOLUME 82 fL (82-100); MONOCYTES # (AUTO) 0.3 K/uL (0.1-1.30); MONOCYTES % (AUTO) 2.1 % (2.0-12.0); NEUTROPHILS # (AUTO) 14.3 K/uL (1.8-8.9); NEUTROPHILS % (AUTO) 93.5 % (43.0-81.0); PLATELET COUNT (AUTO) 439 K/uL (150-450); WHITE BLOOD COUNT (AUTO) 15.3 K/uL (4.3-11.0)
--- NOTE | 2021-06-23 07:55 | NUR ---
RN NOTE PATIENT IN BED, AWAKE, A/OX4. AMBULATORY. NO S/S OF APPARENT DISTRESS. NO C/O PAIN AT THIS TIME. TELE MONITOR READING NSR. PATIENT RECEIVED 2 BAGS OF PRBC LAST NIGHTTOLERATED, NO REACTION. IV KCL 40 MEQ WITH NS RUNNING AT 100 ML/HR. WILL CONTINUE TO MONITOR. BED ON ITS LOWEST POSITION, BED IN LOCKED POSITION, SIDE RAILS UP, CALL LIGHT PLACED WITHIN EASY REACH.
[2021-06-23 08:02] LABS: POTASSIUM 3.8 mmol/L (3.5-5.1)
[2021-06-23 08:03] LABS: CALCIUM, SERUM 8.4 mg/dL (8.5-10.1); CREATININE 1.2 mg/dL (0.6-1.3)
[2021-06-23] MEDS: MEGESTROL ACETATE 40 MG TABLET PO SCH ×2 (08:13→08:18)
[2021-06-23 08:15] LABS: D-DIMER 7.29 mg/L(FEU (0.17-0.50)
[2021-06-23 08:17] LABS: THYROID STIMULATING HORMONE 2.452 uIU/mL (0.358-3.74)
--- NOTE | 2021-06-23 10:00 | NUR ---
RN NOTES SPOKE W/ MICHELLE FROM RADIOLOGY; PER MICHELLE, NO TIME YET BUT WILL SEND REQUISITION TO RADIOLOGIST AND WILL LET US KNOW WHEN NEPHROSTOMY TUBE PLACEMENT PROCEDURE WILL BE DONE.
--- NOTE | 2021-06-23 11:40 | NUR ---
RN NOTES PATIENT PICKED UP FOR SURGERY VIA WHEELCHAIR, ACCOMPANIED BY VIDYA FERRELL
[2021-06-23] MEDS ORDERED: FENTANYL PF 250MCG/5ML AMPUL IV ONE (12:00)
[2021-06-23] MEDS ORDERED: MIDAZOLAM HCL 5MG/ML VIAL 25 MG/5 ML VIAL IV ONE (12:00)
[2021-06-23] MEDS ORDERED: NALOXONE PREFILLED SYRINGE 2 MG/2 ML SYRINGE IV ONE (12:00)
--- NOTE | 2021-06-23 12:55 | NUR ---
RN NOTES PATIENT RETURNED TO UNIT VIA WHEELCHAIR, ACCOMPANIED BY 1 MOTOR POOL CLERK AND 1 HIDE AND SKIN CLASSER NURSE. NOTED W/ NEPHROSTOMY TUBE ON RIGHT POSTERIOR FLANK, MINIMAL SEROSANGUINEOUS DRAINAGE ATTACHED TO DRAIN BAG. NO COMPLAINT OF PAIN AT THIS TIME.
[2021-06-23] MEDS: Potassium Chloride 40 MEQ in IV NS 0.9% 1,000 ML IV PRN (16:38)
--- NOTE | 2021-06-23 18:24 | NUR ---
RN NOTES PATIENT AWAKE, A/O X4. ABLE TO MAKE NEEDS KNOWN. NO SIGNS OF ACUTE DISTRESS NOTED. ON ROOM AIR, BREATHING EVEN AND UNLABORED, DENIES SOB. S/P RIGHT NEPHROSTOMY TUBE PLACEMENT, DRAINING SEROSANGUINEOUS FLUID. NO C/O PAIN ON SX SITE. SX SITE WITH CLEAN AND DRY DRESSING. WITH LEFT AC SL, IVF OF NS+40 MEQ POTASSIUM ONGOING. IV ATB ZOSYN 2.25MG GIVEN, NO ASE NOTED. DISCHARGED FROM TELE. ALL NEEDS ATTENDED TO. SAFETY MEASURES IN PLACE. BED IN LOWEST, LOCKED POSITION. SRX2 UP, TABLE AND CALL LIGHT PLACED WITHIN EASY REACH. WILL CONTINUE TO MONITOR. WILL ENDORSE TO NEXT SHIFT.
--- NOTE | 2021-06-23 20:03 | NUR ---
MS RN OPENING NOTES PATIENT IN BED, AWAKE, WATCHING TV. AOx4. ON RA AND TOLERATING WELL. NO SOB NOTED. NO S/SX OF RESPIRATORY DISTRESS NOTED. IV ACCESS IN R AC#20G RUNNING NS WITH KCL 40 mEQ @ 75 ML/HR. SAFETY MEASURES IN PLACE: BED IN LOWEST, LOCKED POSITION, BRAKES ON, SIDERAILS UPx2. TABLE AND CALL LIGHT WITHIN REACH. WILL CONTINUE TO MONITOR.
[2021-06-23] MEDS: ENOXAPARIN SODIUM 40 MG/0.4 ML DISP.SYRIN SQ SCH (20:34)
[2021-06-23] MEDS: MORPHINE SULFATE INJ 2 MG/ML DISP.SYRIN IV PRN (20:37)
--- NOTE | 2021-06-23 20:37 | NUR ---
PT HAS SEROSANGUINEOUS DRAINAGE VIA NEPHROSTOMY TUBE. CONTACTED DR. HOUSER WHO STATED TO HOLD LOVENOX. ADMINISTERED MORPHINE PER MD ORDER FOR PAIN. VS WNL. WILL CONTINUE TO MONITOR.
[2021-06-24] MEDS: ZOSYN IVPB 2.25 G in IV D5W 50ml IV SCH ×4 (05:19→23:45)
--- NOTE | 2021-06-24 06:41 | NUR ---
MS RN CLOSING NOTES PATIENT IN BED, AWAKE. AOx4. ABLE TO MAKE NEEDS KNOWN. ON RA AND TOLERATING WELL. NO SOB NOTED. NO S/SX OF RESPIRATORY DISTRESS NOTED. IV ACCESS IN R AC#20G RUNNING NS WITH KCL 40 mEQ @ 75 ML/HR. ALL NEEDS MET. TREATED PAIN THROUGHOUT SHIFT. PT KEPT CLEAN AND DRY. SAFETY MEASURES IN PLACE: BED IN LOWEST, LOCKED POSITION, BRAKES ON, SIDERAILS UPx2. TABLE AND CALL LIGHT WITHIN REACH. WILL ENDORSE TO ONCOMING SHIFT FOR ZEINA.
[2021-06-24 06:42] LABS: BASOPHILS # (AUTO) 0.1 K/uL (0.0-0.2); BASOPHILS % (AUTO) 0.5 % (0.0-2.0); EOSINOPHILS % (AUTO) 1.8 % (0.0-6.0); HEMATOCRIT 34 % (33-45); HEMOGLOBIN 11.3 g/dL (11.5-14.8); LYMPHOCYTES # (AUTO) 0.6 K/uL (0.8-4.8); LYMPHOCYTES % (AUTO) 3.7 % (20.0-44.0); MEAN CORPUSCULAR HGB CONC 33 g/dl (31.0-36.0); MEAN CORPUSCULAR VOLUME 81 fL (82-100); MONOCYTES # (AUTO) 0.6 K/uL (0.1-1.30); MONOCYTES % (AUTO) 3.7 % (2.0-12.0); NEUTROPHILS # (AUTO) 14.5 K/uL (1.8-8.9); NEUTROPHILS % (AUTO) 90.3 % (43.0-81.0); PLATELET COUNT (AUTO) 459 K/uL (150-450); RED BLOOD CELL COUNT(AUTO) 4.25 MIL/uL (4.0-5.2)
[2021-06-24 07:24] LABS: CALCIUM, SERUM 8.3 mg/dL (8.5-10.1); MAGNESIUM 2.1 mg/dL (1.8-2.4); PHOSPHORUS 2.4 mg/dL (2.5-4.9); POTASSIUM 4.3 mmol/L (3.5-5.1)
--- NOTE | 2021-06-24 07:50 | NUR ---
MS/RN OPENING NOTES RECEIVED PATIENT IN BED, AWAKE. AOx4. ABLE TO MAKE NEEDS KNOWN. ON RA AND TOLERATING WELL. NO SOB NOTED. NO S/SX OF RESPIRATORY DISTRESS NOTED. IV ACCESS IN R AC#20G IS ATTACHED TO NS WITH KCL 40 mEQ @ 100 ML/HR BUT NOT STARTED DUE TO PATIENT'S REQUEST. SAFETY MEASURES IN PLACE: BED IN LOWEST, LOCKED POSITION, BRAKES ON, SIDERAILS UPx2. TABLE AND CALL LIGHT WITHIN REACH. WILL CONTINUE TO MONITOR PATIENT.
[2021-06-24 08:06] LABS: IMMUNOGLOBULIN A, SERUM 178 mg/dL (87-352); IMMUNOGLOBULIN G, SERUM 838 mg/dL (586-1602); IMMUNOGLOBULIN M, SERUM 31 mg/dL (26-217)
[2021-06-24] MEDS: PANTOPRAZOLE 40 MG TABLET.DR PO SCH (09:13)
[2021-06-24] MEDS: MEGESTROL ACETATE 40 MG TABLET PO SCH (09:13)
[2021-06-24 09:30] VITALS: BP 137/78
[2021-06-24] MEDS ORDERED: NEUTRA PHOS 1 POWD.PACKET PO ONE (10:00)
[2021-06-24 13:06] LABS: *SPE A/G RATIO 0.7 (0.7-1.7); *SPE ALPHA-1-GLOBULIN 0.5 g/dL (0.0-0.4); *SPE BETA GLOBULIN 0.8 g/dL (0.7-1.3); *SPE M-SPIKE Not Observed g/dL (Not Observed)
[2021-06-24] MEDS: SOD FERRIC GLUC 125 MG in IV NS 0.9% 100 ML IV SCH (14:02)
[2021-06-24 16:00] VITALS: BP 141/75
[2021-06-24] MEDS: Potassium Chloride 40 MEQ in IV NS 0.9% 1,000 ML IV PRN (17:57)
--- NOTE | 2021-06-24 18:56 | NUR ---
MS/RN - IV ACCESS RIGHT AC IV ACCESS WAS DISLODGED, DISCONTINUED. RN ABLE TO ESTABLISHED NEW IV ACCESS ON LEFT HAND #20G.
--- NOTE | 2021-06-24 19:09 | NUR ---
MS/RN CLOSING NOTES PATIENT IN BED A/O X 4, ABLE TO MAKE NEEDS KNOWN. PATIENT ON RA TOLERATING WELL, BREATHING EVEN AND UNLABORED. AMBULATORY/STEADY. NEW IV ACCESS ON LEFT HAND #20G IS INTACT AND PATENT WITH A RUNNING IV NS + KCL 40MEQ @70ML/HR. ALL NEEDS MET. KEPT PATIENT COMFORTABLE. SAFETY MEASURES IN PLACE: BED IN LOWEST, LOCKED POSITION, SIDE RAILS UP X2, CALL LIGHT WITHIN REACH. WILL ENDORSE TO THE NEXT SHIFT FOR ZEINA.
[2021-06-24 20:00] VITALS: BP 133/63
[2021-06-24] MEDS: ENOXAPARIN SODIUM 40 MG/0.4 ML DISP.SYRIN SQ SCH (20:55)
[2021-06-24] MEDS: MORPHINE SULFATE INJ 2 MG/ML DISP.SYRIN IV PRN (21:57)
--- NOTE | 2021-06-24 21:57 | NUR ---
ADMINISTERED MORPHINE PER MD ORDER FOR PAIN. VS WNL. WILL CONTINUE TO MONITOR.
--- NOTE | 2021-06-24 22:22 | NUR ---
MS RN OPENING NOTES PATIENT IN BED, AWAKE, WATCHING TV. AOx4. ON RA AND TOLERATING WELL. NO SOB NOTED. NO S/SX OF RESPIRATORY DISTRESS NOTED. IV ACCESS IN L FA #20G RUNNING NS WITH KCL 40 mEQ @ 70 ML/HR. NEPHROSTOMY TUBE ON R SIDE OF BACK DRAINING SEROSANGUINEOUS. SAFETY MEASURES IN PLACE: BED IN LOWEST, LOCKED POSITION, BRAKES ON, SIDERAILS UPx2. TABLE AND CALL LIGHT WITHIN REACH. WILL CONTINUE TO MONITOR. Addendum: 06/24/21 at 2224 by SHELIA GRIGSBY RN TIME SHOULD BE 1950.
[2021-06-25] MEDS: ZOSYN IVPB 2.25 G in IV D5W 50ml IV SCH ×4 (05:32→23:28)
[2021-06-25 06:37] LABS: BASOPHILS # (AUTO) 0.1 K/uL (0.0-0.2); BASOPHILS % (AUTO) 0.4 % (0.0-2.0); EOSINOPHILS % (AUTO) 1.2 % (0.0-6.0); HEMATOCRIT 36 % (33-45); HEMOGLOBIN 11.3 g/dL (11.5-14.8); LYMPHOCYTES # (AUTO) 0.7 K/uL (0.8-4.8); LYMPHOCYTES % (AUTO) 5.1 % (20.0-44.0); MEAN CORPUSCULAR HGB CONC 32 g/dl (31.0-36.0); MEAN CORPUSCULAR VOLUME 82 fL (82-100); MONOCYTES # (AUTO) 0.8 K/uL (0.1-1.30); MONOCYTES % (AUTO) 5.8 % (2.0-12.0); NEUTROPHILS # (AUTO) 11.7 K/uL (1.8-8.9); NEUTROPHILS % (AUTO) 87.5 % (43.0-81.0); PLATELET COUNT (AUTO) 484 K/uL (150-450); RED BLOOD CELL COUNT(AUTO) 4.34 MIL/uL (4.0-5.2); WHITE BLOOD COUNT (AUTO) 13.3 K/uL (4.3-11.0)
--- NOTE | 2021-06-25 06:41 | NUR ---
MS RN OPENING NOTES PATIENT IN BED, AWAKE, WATCHING TV. AOx4. ABLE TO MAKE NEEDS KNOWN. ON RA AND TOLERATING WELL. NO SOB NOTED. NO S/SX OF RESPIRATORY DISTRESS NOTED. IV ACCESS IN L FA #20G RUNNING NS WITH KCL 40 mEQ @ 70 ML/HR. NEPHROSTOMY TUBE ON R SIDE OF BACK DRAINING SEROSANGUINEOUS DRAINAGE -250 mL. ALL NEEDS MET. PT KEPT CLEAN AND DRY. TREATED PAIN ONCE DURING SHIFT. SAFETY MEASURES IN PLACE: BED IN LOWEST, LOCKED POSITION, BRAKES ON, SIDERAILS UPx2. TABLE AND CALL LIGHT WITHIN REACH. WILL ENDORSE TO ONCOMING SHIFT FOR ZEINA.
[2021-06-25 07:13] LABS: CALCIUM, SERUM 8.5 mg/dL (8.5-10.1); PHOSPHORUS 3.4 mg/dL (2.5-4.9); POTASSIUM 4.6 mmol/L (3.5-5.1)
--- NOTE | 2021-06-25 07:22 | NUR ---
RN OPENING NOTES Patient seen comfortably lying in bed, no apparent distress noted, respirations even and unlabored, no SOB, denies any pain or discomfort at this time. Call light left within reach, safety precautions in place, brakes locked, side rails up X 2, will monitor closely for any changes.
[2021-06-25] MEDS: PANTOPRAZOLE 40 MG TABLET.DR PO SCH (09:33)
[2021-06-25] MEDS: MEGESTROL ACETATE 40 MG TABLET PO SCH (09:33)
[2021-06-25 10:32] VITALS: BP 124/86
[2021-06-25] MEDS: SOD FERRIC GLUC 125 MG in IV NS 0.9% 100 ML IV SCH (14:59)
[2021-06-25 16:53] VITALS: BP 139/88
--- NOTE | 2021-06-25 19:00 | NUR ---
RN CLOSING NOTES Patient lying in bed, AO X 4, able to make needs known, can follow simple commands. No apparent distress noted, no dizziness, no palpitations, respirations even and unlabored, no SOB, remained afebrile. S/P nephrostomy tube placement, drainage bag draining serosanguinous output with minimal clots, hospitalist aware and acknowledged. All due medications given per MD order, tolerating well. Call light left within reach, all needs attended, kept clean and dry, safety precautions in place, brakes locked, side rails up X 2, will endorse to next shift for continuity of care.
[2021-06-25 20:00] VITALS: BP 130/80
--- NOTE | 2021-06-25 20:00 | NUR ---
MS RN NOTES RECEIVED OUT OF BED,AMBULATE TO THE RESTROOM,AJPICC LINER AT BEDSIDE TO PUT MIDLINE ORDERED.WITH LEFT ARM SALINE LOCK INTACT AND PATENT.S/P RIGHT LOWER BACK NEPHROSTOMY TUBE PLACEMENT WITH CONNECTED TO DRAIN BAGS.CALL LIGHT IN REACH,NEEDS ANTICIPATED.
--- NOTE | 2021-06-25 20:30 | NUR ---
MS RN NOTES S/P POST PLACEMENT OF LEFT UPPER ARM MIDLINE,IVF NS WITH KCL INFUSING AT THIS TIME.
[2021-06-25] MEDS: ENOXAPARIN SODIUM 40 MG/0.4 ML DISP.SYRIN SQ SCH (20:48)
[2021-06-26] VITALS: BP 126/70
[2021-06-26] MEDS: ZOSYN IVPB 2.25 G in IV D5W 50ml IV SCH ×3 (05:23→17:01)
[2021-06-26 06:37] LABS: BASOPHILS # (AUTO) 0.1 K/uL (0.0-0.2); BASOPHILS % (AUTO) 0.3 % (0.0-2.0); EOSINOPHILS % (AUTO) 0.7 % (0.0-6.0); HEMATOCRIT 37 % (33-45); HEMOGLOBIN 12.3 g/dL (11.5-14.8); LYMPHOCYTES # (AUTO) 0.7 K/uL (0.8-4.8); MEAN CORPUSCULAR HGB CONC 33 g/dl (31.0-36.0); MEAN CORPUSCULAR VOLUME 82 fL (82-100); MONOCYTES # (AUTO) 1.1 K/uL (0.1-1.30); MONOCYTES % (AUTO) 6.4 % (2.0-12.0); NEUTROPHILS # (AUTO) 14.7 K/uL (1.8-8.9); NEUTROPHILS % (AUTO) 88.6 % (43.0-81.0); PLATELET COUNT (AUTO) 581 K/uL (150-450); RED BLOOD CELL COUNT(AUTO) 4.58 MIL/uL (4.0-5.2); WHITE BLOOD COUNT (AUTO) 16.6 K/uL (4.3-11.0)
[2021-06-26 06:56] LABS: CALCIUM, SERUM 8.9 mg/dL (8.5-10.1); CREATININE 0.9 mg/dL (0.6-1.3); MAGNESIUM 1.9 mg/dL (1.8-2.4); PHOSPHORUS 3.3 mg/dL (2.5-4.9); POTASSIUM 3.7 mmol/L (3.5-5.1)
--- NOTE | 2021-06-26 07:03 | NUR ---
MS RN NOTES SLEPT WELL AT NIGHT,IVF DISCONTINUED BY HOSPITALIST LIZZ,NEPHROSTOMY TUBE DRAINS 220ML PINKISH OUTPUT.AMBULATORY.
--- NOTE | 2021-06-26 07:30 | NUR ---
MS RN OPENING NOTE RECEIVED PT AWAKE IN BED. A/O X4. PT IS STABLE ON ROOM AIR WITH NO SOB OR S/S OF RESPIRATORY DISTRESS NOTED. PT HAS NO C/O PAIN OR DISCOMFORT AT THIS TIME. IV ACCESS IN ANDREE MIDLINE #18, INTACT AND PATENT. S/P RIGHT LOWER BACK NEPHROSTOMY TUBE PLACEMENT CONNECTED TO DRAINAGE BAG. SAFETY PRECAUTIONS MAINTAINED. BED IN LOWEST LOCKED POSITION, HOB ELEVATED, SIDE RAILS UP X2. CALL LIGHT AND TABLE WITHIN REACH. WILL CONTINUE TO MONITOR.
[2021-06-26 08:00] VITALS: BP 142/87
[2021-06-26] MEDS: PANTOPRAZOLE 40 MG TABLET.DR PO SCH (08:02)
[2021-06-26] MEDS: MEGESTROL ACETATE 40 MG TABLET PO SCH (08:21)
[2021-06-26] MEDS: SOD FERRIC GLUC 125 MG in IV NS 0.9% 100 ML IV SCH (15:11)
[2021-06-26 16:00] VITALS: BP 142/73
--- NOTE | 2021-06-26 18:30 | NUR ---
MS RN CLOSING NOTE PT IS AWAKE IN BED. A/O X4. PT IS STABLE ON ROOM AIR WITH NO SOB OR S/S OF RESPIRATORY DISTRESS NOTED. PT HAS NO C/O PAIN OR DISCOMFORT AT THIS TIME. IV ACCESS IN ANDREE MIDLINE #18, INTACT AND PATENT. S/P RIGHT LOWER BACK NEPHROSTOMY TUBE PLACEMENT CONNECTED TO DRAINAGE BAG WITH 400ML SEROSANGUINEOUS OUTPUT. ALL NEEDS HAVE BEEN MET. SAFETY PRECAUTIONS MAINTAINED AT ALL TIMES. BED IN LOWEST LOCKED POSITION, HOB ELEVATED, SIDE RAILS UP X2. CALL LIGHT AND TABLE WITHIN REACH. WILL ENDORSE TO ONCOMING NURSE FOR ZEINA.
--- NOTE | 2021-06-26 19:15 | NUR ---
MS RN OPENING NOTES: RECEIVED PATIENT IN BED, AWAKE, A/O X4. NO S/S OF DISTRESS NOTED. NO COMPLAIN OF PAIN. CALL LIGHT WITHIN REACH. BED IN LOWEST AND LOCKED POSITION. WITH RIGHT NEPHROSTOMY TUBE INTACT, DRAINING SEROSANGUNOUS OUTPUT.
[2021-06-26 20:00] VITALS: BP 124/85
[2021-06-26] MEDS: ENOXAPARIN SODIUM 40 MG/0.4 ML DISP.SYRIN SQ SCH (21:50)
[2021-06-27] MEDS: ZOSYN IVPB 2.25 G in IV D5W 50ml IV SCH ×5 (01:04→23:45)
--- NOTE | 2021-06-27 07:52 | NUR ---
MS/RN OPENING NOTES RECEIVED PATIENT IN BED AWAKE ALERT AND ORIENTED X4. PATIENT IS ON ROOM AIR. PATIENT IN NO APPARENT RESPIRATORY DISTRESS NOTED. NO COMPLAINTS OF PAIN AT THIS TIME. IV ACCESS AT LEFT UPPER ARM MIDLINE #18G IS PATENT AND INTACT. SAFETY PRECAUTIONS WAS IN PLACED. BED IN LOWEST POSITION AND LOCKED. CALL LIGHT WITHIN REACH. WILL CONTINUE TO MONITOR PATIENT.
[2021-06-27 08:00] VITALS: BP 149/91
[2021-06-27] MEDS: PANTOPRAZOLE 40 MG TABLET.DR PO SCH (08:00)
[2021-06-27] MEDS: MEGESTROL ACETATE 40 MG TABLET PO SCH ×2 (08:49→09:06)
[2021-06-27] MEDS: SOD FERRIC GLUC 125 MG in IV NS 0.9% 100 ML IV SCH (14:40)
[2021-06-27 16:00] VITALS: BP 145/77
[2021-06-27] MEDS: HYDROCODONE/APAP 5/325MG TABLET PO PRN (18:28)
--- NOTE | 2021-06-27 19:11 | NUR ---
MS/RN CLOSING NOTES PATIENT IN BED AWAKE ALERT AND ORIENTED X4. PATIENT IS ON ROOM AIR. PATIENT IN NO APPARENT RESPIRATORY DISTRESS NOTED. NO COMPLAINTS OF PAIN AT THIS TIME. IV ACCESS AT LEFT UPPER ARM MIDLINE #18G IS PATENT AND INTACT ON SALINE LOCK. SAFETY PRECAUTIONS IN PLACED. BED IN LOWEST POSITION AND LOCKED. CALL LIGHT WITHIN REACH. WILL ENDORSE TO THE NEXT SHIFT FOR ZEINA.
[2021-06-27 20:00] VITALS: BP 138/80
[2021-06-27] MEDS: ENOXAPARIN SODIUM 40 MG/0.4 ML DISP.SYRIN SQ SCH (21:30)
[2021-06-28] MEDS: ZOSYN IVPB 2.25 G in IV D5W 50ml IV SCH (06:01)
[2021-06-28] MEDS: MEGESTROL ACETATE 40 MG TABLET PO SCH (08:42)
[2021-06-28] MEDS: PANTOPRAZOLE 40 MG TABLET.DR PO SCH (08:42)
[2021-06-28] MEDS: METRONIDAZOLE 500 MG TABLET PO SCH ×3 (12:16→23:36)
[2021-06-28] MEDS: SOD FERRIC GLUC 125 MG in IV NS 0.9% 100 ML IV SCH (14:36)
--- NOTE | 2021-06-28 19:15 | NUR ---
MS RN OPENING NOTES: RECEIVED PATIENT IN BED. AWAKE. A/O X4. NO S/S OF DISTRESS NOTED. CALL LIGHT WITHIN REACH. BED IN LOWEST AND LOCKED POSITION.
[2021-06-28 20:00] VITALS: BP 168/97
[2021-06-28] MEDS: ENOXAPARIN SODIUM 40 MG/0.4 ML DISP.SYRIN SQ SCH (21:14)
[2021-06-28] MEDS: HYDROCODONE/APAP 5/325MG TABLET PO PRN (22:36)
[2021-06-28 23:48] VITALS: BP 153/80
[2021-06-29] MEDS: METRONIDAZOLE 500 MG TABLET PO SCH ×2 (05:33→11:13)
[2021-06-29 07:02] LABS: BASOPHILS # (AUTO) 0.1 K/uL (0.0-0.2); BASOPHILS % (AUTO) 0.6 % (0.0-2.0); CREATININE 0.9 mg/dL (0.6-1.3); EOSINOPHILS % (AUTO) 0.7 % (0.0-6.0); HEMATOCRIT 36 % (33-45); HEMOGLOBIN 11.4 g/dL (11.5-14.8); LYMPHOCYTES # (AUTO) 0.7 K/uL (0.8-4.8); MEAN CORPUSCULAR HGB CONC 32 g/dl (31.0-36.0); MEAN CORPUSCULAR VOLUME 82 fL (82-100); MONOCYTES # (AUTO) 0.8 K/uL (0.1-1.30); NEUTROPHILS # (AUTO) 11.9 K/uL (1.8-8.9); NEUTROPHILS % (AUTO) 87.7 % (43.0-81.0); PLATELET COUNT (AUTO) 583 K/uL (150-450); POTASSIUM 3.2 mmol/L (3.5-5.1); RED BLOOD CELL COUNT(AUTO) 4.34 MIL/uL (4.0-5.2); WHITE BLOOD COUNT (AUTO) 13.5 K/uL (4.3-11.0)
--- NOTE | 2021-06-29 07:32 | NUR ---
MS RN OPENING NOTES PATIENT IN BED ASLEEP, A/O X4. PATIENT IS ON ROOM AIR, NO S/SX OF RESPIRATORY DISTRESS NOTED. IV ACCESS AT LEFT UPPER ARM MIDLINE #18G SL IS PATENT AND INTACT. RIGHT NEPHROSTOMY TUBE PRESENT. SAFETY PRECAUTIONS MAINTAINED: BED IN LOWEST POSITION AND LOCKED, SIDERAILS UP X 2, CALL LIGHT WITHIN REACH. WILL CONTINUE TO MONITOR PATIENT.
[2021-06-29 08:00] VITALS: BP 144/83
[2021-06-29] MEDS: PANTOPRAZOLE 40 MG TABLET.DR PO SCH (08:32)
[2021-06-29] MEDS: MEGESTROL ACETATE 40 MG TABLET PO SCH (08:32)
[2021-06-29] MEDS ORDERED: POTASSIUM CHLORIDE 20 MEQ POWDER PACKET PO ONE (09:00)
[2021-06-29] MEDS ORDERED: POTASSIUM CHLORIDE 20 MEQ POWDER PACKET PO SCH (10:00)
[2021-06-29] MEDS ORDERED: POTASSIUM CHLORIDE 20 MEQ TAB.PRT.SR PO SCH (10:00)
[2021-06-29] MEDS ORDERED: METR500T PO (10:36)
[2021-06-29] MEDS ORDERED: ONDA4TAB5 PO (10:36)
[2021-06-29] MEDS ORDERED: HYDR-3972 PO (10:36)
--- NOTE | 2021-06-29 12:03 | NUR ---
DISCHARGE NOTE Received order for discharge. Patient is A/O x 4, able to make needs known. Patient is breathing evenly and unlabored on room air. No s/sx of distress noted. Patient does not complain of any pain or discomfort at this time. Patient was given discharge instructions, both verbally and in written form, verbalized understanding. Patient's belongings accounted for, belongings sheet signed. IV access removed, catheter tip intact; pressure dressing applied and no signs of bleeding noted. Nephrostomy bag drained, 100 cc pink urine noted. ID band removed. Patient left in stable condition via private car with family.
== END 2021-06-29 12:15 | disposition home or self-care (01) | DRG 720 ==
LOC: ER 10:38 → TELE 14:27 → MED 06-23 15:18
PROVIDERS: ADMIT Nurse Practitioner Acute Care; ATTEND Nurse Practitioner Acute Care
PROC: 30233N1 Transfusion of Nonautologous Red Blood Cells into Peripheral Vein, Percutaneous Approach (ICD-10-PCS; 2021-06-22)
PROC: 0T933ZZ Drainage of Right Kidney Pelvis, Percutaneous Approach (ICD-10-PCS; principal; 2021-06-23)
PROC: 05HC33Z Insertion of Infusion Device into Left Basilic Vein, Percutaneous Approach (ICD-10-PCS; 2021-06-25)
DX: A41.50 Gram-negative sepsis, unspecified (principal); I21.A1 Myocardial infarction type 2; D68.59 Other primary thrombophilia; E87.1 Hypo-osmolality and hyponatremia; C78.6 Secondary malignant neoplasm of retroperitoneum and peritoneum; C55 Malignant neoplasm of uterus, part unspecified; D62 Acute posthemorrhagic anemia; E83.39 Other disorders of phosphorus metabolism; I10 Essential (primary) hypertension; D75.839 Thrombocytosis, unspecified; N13.6 Pyonephrosis; N13.9 Obstructive and reflux uropathy, unspecified; Z20.822 Contact with and (suspected) exposure to COVID-19; Z87.891 Personal history of nicotine dependence; R19.09 Other intra-abdominal and pelvic swelling, mass and lump; E87.6 Hypokalemia; D25.9 Leiomyoma of uterus, unspecified; D50.9 Iron deficiency anemia, unspecified; E86.1 Hypovolemia; G89.3 Neoplasm related pain (acute) (chronic); Z79.899 Other long term (current) drug therapy
CPT/HCPCS: 36415; 71045-TC; 71250-TC; 75989; 80048-TC; 80053-TC; 80061-TC; 80076-TC; 81001; 82728-TC; 82784; 83540-TC; 83605-TC; 83615-TC; 83735-TC; 84100-TC; 84155; 84165; 84443-TC; 84484-TC; 85025-TC; 85378-TC; 85610-TC; 85730-TC; 86304; 86334; 86850-TC; 87040-TC; 87081-TC; 87086-TC; 93307-TC; A4215; C9803; G0378; J1650; J2250; J2270; J2310; J2543; J2916; J3010; J3480; J7030; J7040; J7050; J7060; P9016; Q9967

== ENCOUNTER 2021-08-03 15:16 | Emergency (ER) | payer OTHER ==
[~2021-08-03] VITALS: Ht 157.5 cm; Wt 54.9 kg
[~2021-08-03 15:16] MED LIST changes: +ACET-868 PO; +FERR324T PO; +HYDR-3972 PO; +LOSA1TAB42 PO; +METR500T PO; -MULT-754 PO; +ONDA4TAB5 PO
[2021-08-03] MEDS ORDERED: CALCIUM CHLORIDE 1,000 MG/10 ML DISP.SYRIN IV ONE (15:21)
[2021-08-03] MEDS ORDERED: EPINEPHRINE (1:10,000) SYRINGE 1 MG/10 ML DISP.SYRIN IVP ONE (15:21)
[2021-08-03] MEDS ORDERED: SODIUM BICARBONATE SYR 50 MEQ/50 ML DISP.SYRIN IV ONE (15:21)
[2021-08-03] MEDS ORDERED: AMIODARONE 150 MG/3 ML VIAL IV ONE (15:21)
--- NOTE | 2021-08-03 15:37 | NUR ---
PT BIB [facility] FROM HOME,GENERALIZED WEAKNESS AND BODY PAIN, S/P CHEMO 5 DAYS AGO. PT LETHARGIC A/OX1. ON O2 15LPM VIA NRB TOLERATING AT 90%. CONNECTED PT TO POX AND MONITOR. SAFETY MEASURES IN PLACE
[2021-08-03] MEDS ORDERED: IV NS 0.9% 1,000 ML BAG IV ONE (16:00)
--- NOTE | 2021-08-03 16:19 | NUR ---
URINE COLLECTED VIA NEPHROSTOMY TUBE AND SENT TO LAB
[2021-08-03 16:20] VITALS: BP 121/66
--- NOTE | 2021-08-03 16:24 | NUR ---
MIDLINE NURSE AT PT'S BEDSIDE
--- NOTE | 2021-08-03 16:41 | NUR ---
MIDLINE NURSE ASKED RN TO CHECK ON PT
--- NOTE | 2021-08-03 16:42 | NUR ---
CODE [facility] ACTIVATED; DR SARAVIA AWARE. NO PULSE NOTED; NO RESPIRATIONS, PUPILS FIXED. ACLS & CPR DONE APPROPRIATELY ORDERED PER DR. ASRAVIA AND PROTOCOL. REFER TO CARDIOPULMONARY ARREST RECORD FORM.
[2021-08-03] MEDS ORDERED: CALCIUM CHLORIDE 1,000 MG/10 ML DISP.SYRIN ONE (16:51)
--- NOTE | 2021-08-03 17:05 | NUR ---
DR. SARAVIA PRONOUCED PT . NO PULSE, NO RESPIRATIONS, PUPILS FIXED, NO RESPONSE TO PAIN.
--- NOTE | 2021-08-03 17:21 | NUR ---
[facility] NOTIFIED MARYANNE ON PT'S . CASE #[id number]. MARYANNE STATED OKAY TO RELEASE BODY
--- NOTE | 2021-08-03 17:40 | NUR ---
[facility] CALLED @ 1642. PT INTUBATED @ 1649 WITH SIZE 7 ET TUBE 23 AT THE LIP, GOOD CO2 COLOR CHANGE. BILATERAL BREATH SOUNDS AUSCULTATED. PT PRONOUNCED BY ER DR SARAVIA @ 1704, AFTER MULTIPLE ROUNDS OF CPR AND IV MEDICATION.
--- NOTE | 2021-08-03 17:42 | NUR ---
REPORTED TO DEPARTMENT OF [employer]ER-VETERINARY PHARMACOLOGIST. Percy OROPEZA STATED PT IS NOT A VETERINARY PHARMACOLOGIST'S CASE
--- NOTE | 2021-08-03 17:46 | NUR ---
CALLED LAYNE DU (SISTER) [phone] - [phone] WITH NO RESPONSE. NOT ABLE TO LEAVE A VOICE MESSAGE AT THIS TIME.
--- NOTE | 2021-08-03 18:08 | NUR ---
Raad murray in ED - 08/03/21 at [address] CALVERT'S OFFICE AND UNABLE TO LVM.
--- NOTE | 2021-08-03 18:10 | NUR ---
CALLED DR. ROMERO OFFICE AND LVM AT . CALLED OFFICE AT AND PAGED.
--- NOTE | 2021-08-03 18:17 | NUR ---
CALLED DR. LION OFFICE AT AND PAGED
--- NOTE | 2021-08-03 20:08 | NUR ---
DR. JI CALLED BACK AND WAS INFORMED OF PATIENT'S .
--- NOTE | 2021-08-03 20:15 | NUR ---
Note trevor in EDM - 08/04/21 at 0018 by ENDER BIBS, WAS AROUND COVID POSITIVE FAMILY MEMBER WANTS TO GET COVID TEST. DENIES HAVING ANY SYMPTOMS. PT A/OX4. TOLERATING R/A WELL WITH NO SOB
== END 2021-08-03 20:00 ==
LOC: ER 15:20
DX: I46.9 Cardiac arrest, cause unspecified (principal); R55 Syncope and collapse
CPT/HCPCS: 31500; 92950; 93005; 96360; 99291; J0171; J0282; J3490 ×3; J7030